=== PATIENT | male | born 1970 | race Caucasian/White ===

== ENCOUNTER → 2019-08-17 | Day surgery (SDC) | payer BC ==
[~2019-08-17] MED LIST: Acetaminophen 500 MG Tab PO ONE; Gabapentin 300 MG Cap PO ONE; Lactated Ringers 1,000 ML IV SCH; Ropivacaine 49.25 ML, Ketorolac 30 MG, EPINEPHrine 0.5 MG, cloNIDine 80 MCG, Sodium Chl... INJECT ONE; Scopolamine 1.5 MG Transdermal Patch TRDERM ONE; Sodium Chloride 0.9% 10 ML Syringe FLUSH PRN; Tranexamic Acid 3,000 MG, Sodium Chloride 0.9% 100 ML IRR ONE; ceFAZolin 2 GM in Premix Bag 1 BAG IV ONE
== END ==
LOC: FB.SDS 08:21
PROVIDERS: ATTEND Orthopaedic Surgery
DX: M17.11 Unilateral primary osteoarthritis, right knee (principal); Z53.09 Procedure and treatment not carried out because of other contraindication